=== PATIENT | female | born 1945 | race Caucasian/White ===

== ENCOUNTER → 2021-08-12 | Outpatient (CLI) | payer OTHER ==
[~2021-08-12] MED LIST: CALCIUM500 MG PO; DULOXETINE HCL60 MG PO; MAGNESIUM250 M1 PO; MELOXICAM7.5 MG PO; ONE DAILY COMP1 EAC2 PO; VITAMIN D325 MC3 PO; ZINC30 M1 PO; ZOLPIDEM TARTRA10 MG PO
== END ==
LOC: LAB 09:36
PROVIDERS: ATTEND Student in an Organized Health Care Education/Training Program
DX: Z01.812 Encounter for preprocedural laboratory examination (principal); Z20.822 Contact with and (suspected) exposure to COVID-19

== ENCOUNTER → 2021-08-14 | Outpatient (CLI) | payer OTHER ==
[~2021-08-14] VITALS: Ht 154.9 cm; Wt 52.2 kg
--- NOTE | 2021-08-15 16:41 | P ---
[facility] [place] [address] PROCEDURE REPORT Name: MAYELA MARTINEZ [id number] Admission: 08/14/21 Attend Phys: Bo La Discharge: Date of : 47 Report #: [id number] THIS REPORT FOR: cc: Rivka Robert MD, Sara A. MD McElhinney, Christian C. MD ~ cc: Rivka Robert MD DATE OF SERVICE: 08/14/2021 PROCEDURE PERFORMED: Colonoscopy with polypectomies. HISTORY OF PRESENT ILLNESS: The patient is a 75-year-old female, here for routine screening colonoscopy. Last colonoscopy 10 years ago. She denies any symptoms other than mild constipation. No family history of colon cancer. DESCRIPTION OF PROCEDURE: The risks and benefits of the procedure were explained to the patient, those risks including but not limited to bleeding, perforation and the risk of sedation. She understood these risks and gave informed consent. Sedation was given using propofol per anesthesia. Next, a digital rectal exam was initially performed, which was normal. Next, using a standard Olympus colonoscope, the scope was placed in the patient's anus and advanced under direct vision to the cecum. The overall prep was good. The cecum and ileocecal valve were normal in appearance. The ascending, transverse and descending colon were normal. In the sigmoid colon, 2 sessile polyps were noted. The larger one was 1 cm in size and removed by snare cautery. The smaller one was 8 mm and also removed by snare cautery. The second one was not retrieved, but it was removed. The rectal mucosa was normal. On retroflexion, no abnormalities were noted. The scope was then withdrawn and the procedure terminated. The patient tolerated the procedure well. IMPRESSION: 1. Two sigmoid colon polyps. 2. Otherwise normal colonoscopy. RECOMMENDATIONS: 1. Await biopsy results. 2. Repeat colonoscopy in 5 years. Thank you for allowing me to participate in her care. <ELECTRONICALLY SIGNED> By: Bo Smiley MD 08/15/21 1641 [id number] 1200 Bo Smiley MD /nt
--- NOTE | 2021-08-19 12:06 | PATH ---
[facility] [address] [address] PATHOLOGY RPT PROCEDURE Name: MAYELA MARTINEZ Room #: REG [facility] M.Claudine.#: [id number] Admission: 08/14/21 Date of : 47 Discharge: Report #: [id number] Path Case #: [id number] [facility] Accession Number: [id number] . 01 Material submitted: . sigmoid colon - SIGMOID POLYP . 02 Diagnosis: Polyp, sigmoid polyp, endoscopic biopsy: - Hyperplastic polyp. - Negative for dysplasia. (IUV:supervisor covering and lining; 08/16/2021) R 08/16/2021 1254 Local . 02 Electronically signed: . Lynn Sanabria MD, Pathologist NPI- [id number] . 01 Gross description: . The specimen is received in formalin, labeled "Mayela Martinez sigmoid polyps". Received is a segment of pale cope tissue measuring 1.0 cm in maximum dimensions. Upon careful inspection of the specimen container, no additional tissue was found. The specimen is submitted entirely in cassette A1.([facility]; 08/15/2021) [facility] 08/15/2021 1345 Local . 02 Pathologist provided ICD-10: K63.5 . 02 CPT . 019550 Specimen Comment: A courtesy copy of this report has been sent to [phone] Specimen Comment: Report sent to Specimen Comment: A duplicate report has been generated due to demographic updates. Performed at: 01 [facility] [address] [place] [id number] MD Ernesto Elizondo MD Phone: [phone] Performed at: [address] [id number] MD Lynn Sanabria MD Phone: [phone]
== END | disposition home or self-care (01) ==
LOC: GI
PROVIDERS: ATTEND Specialist
DX: K59.00 Constipation, unspecified (principal); K63.5 Polyp of colon; F32.9 Major depressive disorder, single episode, unspecified; F41.9 Anxiety disorder, unspecified; Z98.890 Other specified postprocedural states; Z79.899 Other long term (current) drug therapy; Z87.891 Personal history of nicotine dependence; Z85.3 Personal history of malignant neoplasm of breast; Z90.49 Acquired absence of other specified parts of digestive tract; Z98.41 Cataract extraction status, right eye; Z98.42 Cataract extraction status, left eye
CPT/HCPCS: 62110; 62900